=== PATIENT | female | born 1990 | race Caucasian/White ===

== ENCOUNTER 2016-12-19 11:18 | Emergency (ER) | payer SELFPAY ==
[2016-12-19 12:18] VITALS: BP 131/77
--- NOTE | 2016-12-19 21:55 | Emergency Department Report ---
Entered by CHANDRIKA ALDANA, acting as scribe for LORIE GOMEZ PAC. ED ENT HPI - General Chief complaint: Sore Throat Stated complaint: FLU LIKE S/S VOMIT/STREP Time Seen by Provider: 12/19/16 13:10 Source: patient Mode of arrival: Ambulatory Limitations: No Limitations - History of Present Illness Initial comments: 26 year old female with no significant PMHx presents with c/o sore throat and vomiting x2 1 week ago. Patient states she kissed her friend who has similar sx 1 week ago. Patient reports she took nothing OTC for relief. She rates pain a 6/ 10 in severity, and describes pain as irritating. Patient reports discomfort when swallowing, states that it is a scratchy sensation when she swallows, mild congestion, but denies, fever, chills, chest pain, and cough. Pt states that she had one- two episodes of nausea/vomiting last week, but it did not happen since then and now she feels better- she denies any abdominal pain. Patient LMP 11/24/2016. NKDA. MELCHOR complaint: difficulty swallowing (discomfort ) -: week(s) (1) Severity scale (0 -10): 6 Quality: constant Consistency: constant Improves with: none Worsens with: swallowing Associated Symptoms: pain with swallowing, sore throat. denies: fever, cough, rhinorrhea - Related Data Previous Rx's Medication Instructions Recorded Last Taken Type Acetaminophen/Codeine [Tylenol #3] 1 tab PO Q6H PRN #15 tab 04/14/15 Unknown Rx Cyclobenzaprine HCl [Flexeril 5 MG 5 mg PO Q8HR PRN #15 tablet 04/14/15 Unknown Rx TAB] Ibuprofen [Motrin 800 MG tab] 800 mg PO Q8HR PRN #30 tablet 04/14/15 Unknown Rx Azithromycin [Zithromax Z-KIMBERLY] 250 mg PO DAILY #6 tablet 12/19/16 Unknown Rx Benzocaine/Menthol [Cepacol Sore 1 each MM PRN #10 lozenge 12/19/16 Unknown Rx Throat Lozenge] Fluticasone [Flonase] 1 spray NS QDAY #1 bottle 12/19/16 Unknown Rx Loratadine [Claritin] 10 mg PO DAILY #14 tablet 12/19/16 Unknown Rx Allergies Allergy/AdvReac Type Severity Reaction Status Date / Time No Known Allergies Allergy Verified 04/14/15 12:44 ED Dental HPI - General Chief complaint: Sore Throat Stated complaint: FLU LIKE S/S VOMIT/STREP Source: patient Mode of arrival: Ambulatory Limitations: No Limitations - Related Data Previous Rx's Medication Instructions Recorded Last Taken Type Acetaminophen/Codeine [Tylenol #3] 1 tab PO Q6H PRN #15 tab 04/14/15 Unknown Rx Cyclobenzaprine HCl [Flexeril 5 MG 5 mg PO Q8HR PRN #15 tablet 04/14/15 Unknown Rx TAB] Ibuprofen [Motrin 800 MG tab] 800 mg PO Q8HR PRN #30 tablet 04/14/15 Unknown Rx Azithromycin [Zithromax Z-KIMBERLY] 250 mg PO DAILY #6 tablet 12/19/16 Unknown Rx Benzocaine/Menthol [Cepacol Sore 1 each MM PRN #10 lozenge 12/19/16 Unknown Rx Throat Lozenge] Fluticasone [Flonase] 1 spray NS QDAY #1 bottle 12/19/16 Unknown Rx Loratadine [Claritin] 10 mg PO DAILY #14 tablet 12/19/16 Unknown Rx Allergies Allergy/AdvReac Type Severity Reaction Status Date / Time No Known Allergies Allergy Verified 04/14/15 12:44 ED Review of Systems Comment: All other systems reviewed and negative Constitutional: denies: chills, fever, weakness Eyes: denies: eye pain, eye discharge, vision change ENT: throat pain, congestion (mild, scratchy throat). denies: ear pain Respiratory: denies: cough, shortness of breath, wheezing Cardiovascular: denies: chest pain, palpitations Gastrointestinal: nausea, vomiting. denies: abdominal pain, diarrhea Musculoskeletal: denies: back pain, joint swelling, arthralgia Skin: denies: rash, lesions Neurological: denies: headache, weakness, numbness, paresthesias ED Past Medical Hx - Past Medical History Previous Medical History?: No - Surgical History Past Surgical History?: No - Social History Smoking Status: Never Smoker Substance Use Type: Marijuana - Medications Home Medications: Home Medications Medication Instructions Recorded Confirmed Last Taken Type Acetaminophen/Codeine [Tylenol #3] 1 tab PO Q6H PRN #15 tab 04/14/15 Unknown Rx Cyclobenzaprine HCl [Flexeril 5 MG 5 mg PO Q8HR PRN #15 tablet 04/14/15 Unknown Rx TAB] Ibuprofen [Motrin 800 MG tab] 800 mg PO Q8HR PRN #30 tablet 04/14/15 Unknown Rx Azithromycin [Zithromax Z-KIMBERLY] 250 mg PO DAILY #6 tablet 12/19/16 Unknown Rx Benzocaine/Menthol [Cepacol Sore 1 each MM PRN #10 lozenge 12/19/16 Unknown Rx Throat Lozenge] Fluticasone [Flonase] 1 spray NS QDAY #1 bottle 12/19/16 Unknown Rx Loratadine [Claritin] 10 mg PO DAILY #14 tablet 12/19/16 Unknown Rx ED Physical Exam - General Limitations: No Limitations General appearance: alert, in no apparent distress - Head Head exam: Present: atraumatic, normocephalic - Eye Eye exam: Present: normal appearance, PERRL, EOMI Pupils: Present: normal accommodation. Absent: irregular - ENT ENT exam: Present: mucous membranes moist, other (there was mild redness noted at the posterior pharynx, no muffled voice, some PND, no exudates, airway was patent, no resp distress, or difficulty breathing) - Neck Neck exam: Present: normal inspection, full ROM. Absent: tenderness, meningismus - Respiratory Respiratory exam: Present: normal lung sounds bilaterally. Absent: respiratory distress, wheezes, rales, rhonchi, stridor - Cardiovascular Cardiovascular Exam: Present: regular rate, normal rhythm, normal heart sounds. Absent: systolic murmur, diastolic murmur, rubs, gallop - GI/Abdominal GI/Abdominal exam: Present: soft, normal bowel sounds. Absent: distended, guarding, rebound, rigid, diminished bowel sounds - Extremities Exam Extremities exam: Present: normal inspection, full ROM, normal capillary refill. Absent: tenderness, pedal edema, joint swelling - Back Exam Back exam: Present: normal inspection, full ROM. Absent: tenderness, paraspinal tenderness, vertebral tenderness - Neurological Exam Neurological exam: Present: alert, oriented X3 - Psychiatric Psychiatric exam: Present: normal affect, normal mood - Skin Skin exam: Present: warm, dry, intact, normal color. Absent: rash ED Course Vital Signs 12/19/16 12:10 Temperature 97.9 F Pulse Rate 72 Respiratory 20 Rate Blood Pressure 131/77 O2 Sat by Pulse 100 Oximetry ED Medical Decision Making - Medical Decision Making A/P: pharyngitis and seasonal allergies 1. pt was advised that this is most likely allergy/viral I have educated her on the supportive treatment methods 2. rapid strep was negative at this time, I have told patient to hold the antibiotic and only fill if increasing or worsening symptoms- there was no muffled voice, uvula deviation, stridor, or evidence of obstructed airway on examination-pt was discharged in stable condition and was alert and oriented and in no resp distress at this time. 3. Follow-up has been advised in the next 3-5 days. ED Disposition Clinical Impression: Pharyngitis Qualifiers: Pharyngitis/tonsillitis etiology: unspecified etiology Qualified Code(s): J02.9 - Acute pharyngitis, unspecified Seasonal allergies Qualifiers: Chronicity: acute Allergic rhinitis trigger: unspecified Qualified Code(s): J30.2 - Other seasonal allergic rhinitis Disposition: - TO HOME OR SELFCARE Is pt being admited?: No Does the pt Need Aspirin: No Condition: Stable Instructions: Pharyngitis (ED), Allergic Rhinitis (ED) Additional Instructions: Please hold- off on filling the antibiotic at this time as the rapid strep was negative at this time. Please take the claritin, Flonase, and cepacol lorzenges for your symptoms at this time. Please follow-up with PCP within 3-5 days. Return to the ER with worsening symptoms. Prescriptions: Azithromycin [Zithromax Z-KIMBERLY] 250 mg PO DAILY #6 tablet Benzocaine/Menthol [Cepacol Sore Throat Lozenge] 1 each MM PRN #10 lozenge Fluticasone [Flonase] 1 spray NS QDAY #1 bottle Loratadine [Claritin] 10 mg PO DAILY #14 tablet Referrals: [facility] [Outside] - 3-5 Days [facility] [Outside] - 3-5 Days PRIMARY CARE,MD [Primary Care Provider] - 3-5 Days Forms: Work/School Release Form(ED) This documentation as recorded by the KATYA choe PEARL,accurately reflects the service I personally performed and the decisions made by ,LORIE GOMEZ , PAC.
== END 2016-12-19 16:16 | disposition home or self-care (01) ==
LOC: ED 11:18
DX: J02.9 Acute pharyngitis, unspecified (principal); J30.2 Other seasonal allergic rhinitis; F12.10 Cannabis abuse, uncomplicated
CPT/HCPCS: 81025; 87116; 87430; 99283